=== PATIENT | female | born 1985 | race Caucasian/White ===

== ENCOUNTER 2016-11-10 10:52 | Emergency (ER) | payer OTHER ==
[2016-11-10 10:57] VITALS: BP 117/81; PULSE 88; RESP 18; TEMP 98.2
--- NOTE | 2016-11-10 11:00 | ED ---
General Adult HPI - General Chief complaint: Skin/Abscess/Foreign Body Stated complaint: Rash all over body Time Seen by Provider: 11/10/16 11:00 Source: patient, RN notes reviewed, old records reviewed Mode of arrival: ambulatory Limitations: no limitations - History of Present Illness Initial comments: This is a 31-year-old female here for evaluation of rash. Patient has nonspecific rash over department parts of her body. Spots on her face and upper arms and legs. Patient states symptoms started yesterday, the retches both itchy and painful in nature. She thinks maybe a low-grade fever. She has had issues before with MRSA, has had thorough evaluation for blood poisoning, and full workup for autoimmune disease. Patient states it was determined that she did have skin infection and antibiotics were able to help - Related Data Previous Rx's Medication Instructions Recorded Famotidine [Pepcid] 20 mg PO BID #30 tablet 11/10/16 Hydrocortisone Cream 1 applic TOPICAL BID #1 tube 11/10/16 [Hydrocortisone 2.5% Cream] Sulfamethox-Tmp 800-160Mg [Bactrim 1 tab PO Q12HR #14 tab 11/10/16 DS 800-160 mg] hydrOXYzine HCL [Atarax] 25 mg PO TID PRN #30 tab 11/10/16 predniSONE 50 mg PO DAILY #5 tab 11/10/16 Allergies Allergy/AdvReac Type Severity Reaction Status Date / Time No Known Allergies Allergy Verified 11/10/16 11:40 Review of Systems ROS Statement: Those systems with pertinent positive or pertinent negative responses have been documented in the HPI. ROS Other: All systems not noted in ROS Statement are negative. Past Medical History Additional Past Medical History / Comment(s): cellulitis History of Any Multi-Drug Resistant Organisms: None Reported Additional Past Surgical History / Comment(s): skin graft left hand Past Psychological History: Depression Smoking Status: Current every day smoker Past Alcohol Use History: None Reported Past Drug Use History: None Reported General Exam Limitations: no limitations General appearance: alert, in no apparent distress Head exam: Present: atraumatic, normocephalic, normal inspection Eye exam: Present: normal appearance, PERRL, EOMI. Absent: scleral icterus, conjunctival injection, periorbital swelling ENT exam: Present: normal exam, mucous membranes moist Neck exam: Present: normal inspection. Absent: tenderness, meningismus, lymphadenopathy Respiratory exam: Present: normal lung sounds bilaterally. Absent: respiratory distress, wheezes, rales, rhonchi, stridor Cardiovascular Exam: Present: regular rate, normal rhythm, normal heart sounds. Absent: systolic murmur, diastolic murmur, rubs, gallop, clicks GI/Abdominal exam: Present: soft, normal bowel sounds. Absent: distended, tenderness, guarding, rebound, rigid Extremities exam: Present: normal inspection, full ROM, normal capillary refill. Absent: tenderness, pedal edema, joint swelling, calf tenderness Back exam: Present: normal inspection Neurological exam: Present: alert, oriented X3, CN II-XII intact Psychiatric exam: Present: normal affect, normal mood Skin exam: Present: warm, dry, intact, normal color, other ( does have areas of erythematous rash to extremities, face, all circular nature, no central clearing , they are blanchable). Absent: rash Course Vital Signs 11/10/16 10:54 Temperature 98.2 F Pulse Rate 88 Respiratory 18 Rate Blood Pressure 117/81 O2 Sat by Pulse 99 Oximetry Medical Decision Making - Medical Decision Making 31-year-old female ER with nonspecific dermatitis, patient will be given antibiotic treatment as well as a duration of steroids, symptom management. Patient okay for discharge home Disposition Clinical Impression: Contact dermatitis, MRSA (methicillin resistant Staphylococcus aureus) Disposition: HOME SELF-CARE Condition: Good Instructions: MRSA (Methicillin Resistant Staphylococcus Aureus) (ED) Prescriptions: Famotidine [Pepcid] 20 mg PO BID #30 tablet Hydrocortisone Cream [Hydrocortisone 2.5% Cream] 1 applic TOPICAL BID #1 tube hydrOXYzine HCL [Atarax] 25 mg PO TID PRN #30 tab PRN Reason: Itching predniSONE 50 mg PO DAILY #5 tab Sulfamethox-Tmp 800-160Mg [Bactrim DS 800-160 mg] 1 tab PO Q12HR #14 tab Referrals: Leo Hartman MD [Primary Care Provider] - 1-2 days
[2016-11-10] MEDS ORDERED: SULFAMETHOX-TMP 800-160MG 1 EACH TAB PO STA (11:13)
[2016-11-10] MEDS ORDERED: DEXAMETHASONE SOD PHOSPHATE 10 MG/ML 1 ML VIAL IM STA (11:13)
[2016-11-10] MEDS ORDERED: hydrOXYzine HCL 25 MG TAB PO STA (11:13)
[2016-11-10] MEDS ORDERED: FAMOTIDINE 20 MG TAB PO STA (11:13)
== END 2016-11-10 12:01 | disposition home or self-care (01) ==
LOC: EC 10:52
DX: L25.9 Unspecified contact dermatitis, unspecified cause (principal); B95.62 Methicillin resistant Staphylococcus aureus infection as the cause of diseases classified elsewhere; F17.200 Nicotine dependence, unspecified, uncomplicated
CPT/HCPCS: 99283; 96372; J1100

== ENCOUNTER → 2018-01-19 | Outpatient (CLI) | payer OTHER ==
--- NOTE | 2018-01-19 16:32 | US ---
EXAMINATION TYPE: US venous doppler duplex LE LT DATE OF EXAM: 01/19/2018 4:01 PM COMPARISON: NONE CLINICAL HISTORY: Pain in lower limb LLE M79.605. SIDE PERFORMED: Left TECHNIQUE: The lower extremity deep venous system is examined utilizing real time linear array sonog daniel with graded compression, doppler sonography and color-flow sonography. VESSELS IMAGED: External Iliac Vein (EIV) Common Femoral Vein Deep Femoral Vein Greater Saphenous Vein * Femoral Vein Popliteal Vein Small Saphenous Vein * Proximal Calf Veins (* superficial vessels) Left Leg: Negative for DVT IMPRESSION: No evidence for DVT
== END ==
LOC: RADUSWWP 15:34
PROVIDERS: ATTEND Family Medicine
DX: M79.605 Pain in left leg (principal)

== ENCOUNTER 2018-05-04 16:09 | Inpatient (IN) | payer OTHER ==
[2018-05-04] MEDS ORDERED: DINOPROSTONE 10 MG INSERT.ER VAGINAL ONE (16:19)
[2018-05-04] MEDS ORDERED: ONDANSETRON 4 MG/2 ML VIAL IVP STA (16:21)
[2018-05-04] MEDS ORDERED: LACTATED RINGERS 1,000 ML IV ONE (16:30)
--- NOTE | 2018-05-04 16:30 | P.HPOB ---
History of Present Illness H&P Date: 05/04/18 Chief Complaint: IUP @ 39 4/7 weeks, gestational HTN This is a pleasant 32-year-old 2 para 0010 at 39-4/7 weeks with an estimated due date of 1228 that presents to labor and delivery for induction of labor. Patient has noted nausea and vomiting since around midnight last night denies any sick contacts or changes in her diet. Patient had a blood pressure noted to be 140/90 this is her second episode of elevated blood pressures in therefore diagnosis of gestational hypertension is given to this patient. Patient states she has been yadira irregularly and notes no vaginal bleeding, loss of fluid good movement is noted. NST was done in the office today noted to be reactive. On cervical exam she was 1/50/-3 posterior yet soft. Patient denies visual changes headache or abdominal pain not associated with movement or contractions. Blood type is A+, rubella status immune, RPR nonreactive, hepatitis B surface antigen negative, HIV negative, group beta strep negative on 112, of note she did have a positive urine drug screen for THC on 03/10/2018. Review of Systems Constitutional: Denies chills, Denies fatigue, Denies fever Cardiovascular: Reports leg edema Respiratory: Denies cough, Denies dyspnea Gastrointestinal: Reports nausea, Reports vomiting, Denies constipation, Denies diarrhea Genitourinary: Reports Past Medical History Additional Past Medical History / Comment(s): cellulitis History of Any Multi-Drug Resistant Organisms: None Reported Additional Past Surgical History / Comment(s): skin graft left hand Smoking Status: Never smoker Medications and Allergies Home Medications Medication Instructions Recorded Confirmed Type Famotidine [Pepcid] 20 mg PO BID #30 tablet 11/10/16 04/13/18 Rx Ondansetron [Zofran] 4 mg PO Q12HR PRN 04/13/18 04/13/18 History Pnv No.95/Ferrous Fum/Folic AC 1 each PO DAILY 04/13/18 04/13/18 History [ Multivitamin Tablet] Allergies Allergy/AdvReac Type Severity Reaction Status Date / Time No Known Allergies Allergy Verified 04/13/18 14:31 Exam Osteopathic Statement: *. No significant issues noted on an osteopathic structural exam other than those noted in the History and Physical/Consult. Intake and Output 1205/04/18 05/04/18 06:59 14:59 22:59 Other: Weight 95.708 kg Physical exam is performed on this day, and general this is a well-nourished well-developed female in no acute distress, heart is negative regular rate and rhythm, she displays nonlabored. Breathing with clear lungs being clear to auscultation bilaterally, abdomen is gravid and appropriate for gestational age on cervical exam she is 1/50/-3 soft and posterior. heart tones were noted to be reactive with no contractions noted on the monitor. Assessment and Plan (1) Term Current Visit: Yes Status: Acute Code(s): Z34.80 - ENCOUNTER FOR SUPRVSN OF NORMAL , UNSP TRIMESTER SNOMED Code(s): 89375121 (2) Gestational [-induced] hypertension without significant proteinuria , complicating childbirth Current Visit: Yes Status: Acute Code(s): O13.4 - GESTATNL HTN WITHOUT SIGNIFICANT PROTEIN, COMP CHILDBIRTH SNOMED Code(s): 25507104 Plan: We'll plan to admit patient for Cervidil induction of labor. Given her nausea and vomiting well hydrated with LR, and use Zofran as needed. Plan Pitocin induction in the morning.
[2018-05-04] MEDS ORDERED: ONDANSETRON 4 MG/2 ML VIAL IVP PRN (17:05)
[2018-05-04 17:35] LABS: Basophils % (A) 0 %; Eosinophils # (A) 0.1 k/uL (0-0.7); Eosinophils % (A) 1 %; HCT 36.4 % (34.0-46.0); HGB 11.7 gm/dL (11.4-16.0); Lymphocytes # (A) 1.9 k/uL (1.0-4.8); Lymphocytes % (A) 18 %; MCH 32.4 pg (25.0-35.0); MCHC 32.2 g/dL (31.0-37.0); MCV 100.5 fL (80.0-100.0); Macrocytosis Slight; Mean Platelet Volume 9.4; Monocytes # (A) 0.5 k/uL (0-1.0); Monocytes % (A) 5 %; Neutrophils # (A) 7.3 k/uL (1.3-7.7); Neutrophils % (A) 72 %; Platelet Count 223 k/uL (150-450); RBC 3.62 m/uL (3.80-5.40); RDW 13.4 % (11.5-15.5); WBC 10.2 k/uL (3.8-10.6)
[2018-05-04 17:45] LABS: ALT 20 U/L (9-52); AST 18 U/L (14-36); Blood Urea Nitrogen 7 mg/dL (7-17); LDH 404 U/L (313-618)
[2018-05-04 17:49] VITALS: BMI 34.0
[2018-05-04 18:29] LABS: Appearance,Urine Clear (Clear); Bacteria,Urine Rare /hpf; Bilirubin,Urine Negative (Negative); Blood,Urine Moderate (Negative); Color,Urine Yellow; Glucose,Urine (UA) Negative (Negative); Hyaline Casts,Urine 1 /lpf (0-2); Ketones,Urine 1+ (Negative); Leukocyte Esterase,Urine Negative (Negative); Mucus,Urine Rare /hpf; Nitrite,Urine Negative (Negative); PH, Urine 7.5 (5.0-8.0); Protein,Urine Trace (Negative); RBC,Urine <1 /hpf (0-5); Specific Gravity,Urine 1.013 (1.001-1.035); Squamous Epithelial Cell,Urine <1 /hpf (0-4); Urobilinogen,Urine <2.0 mg/dL (<2.0); WBC,Urine <1 /hpf (0-5)
[2018-05-04 18:33] LABS: Amphetamine Screen,Urine Not Detected (NotDetected); Barbiturate Screen,Urine Not Detected (NotDetected); Benzodiazepines Screen,Urine Not Detected (NotDetected); Cocaine Screen,Urine Not Detected (NotDetected); Methadone Screen, Urine Not Detected (NotDetected); Opiate Screen,Urine Not Detected (NotDetected); Oxycodone Screen, Urine Not Detected (NotDetected); Phencyclidine Screen,Urine Not Detected (NotDetected); Tricyclic Antidepressant,Urine Not Detected (NotDetected); Urn Cannabinoid Scrn Detected (NotDetected)
[2018-05-04] MEDS: LACTATED RINGERS 1,000 ML IV SCH (18:51)
[2018-05-04] MEDS ORDERED: CITRIC ACID-SODIUM CITRATE 15 ML CUP PO PRN (21:09)
[2018-05-04] MEDS: FAMOTIDINE 20 MG/2 ML VIAL IV SCH (21:47)
[2018-05-05] MEDS: LACTATED RINGERS 1,000 ML IV SCH ×2 (01:10→08:38)
[2018-05-05] MEDS: BUTORPHANOL 1 MG/ML 1 ML VIAL IV PRN ×3 (04:13→15:11)
[2018-05-05] MEDS ORDERED: ROPIVACAINE 100 MG, fentaNYL (PF) 200 MCG in SODIUM CHLORIDE 0.9% 76 ML EPIDURAL ONE (09:20)
[2018-05-05] MEDS: FAMOTIDINE 20 MG/2 ML VIAL IV SCH (09:58)
[2018-05-05] MEDS ORDERED: OXYTOCIN 10 UNIT/ML 1 ML VIAL IM ONE (15:18)
[2018-05-05] MEDS ORDERED: CARBOPROST TROMETHAMINE 250 MCG/ML 1 ML AMP IM ONE (15:24)
[2018-05-05] MEDS ORDERED: WITCH HAZEL 1 EACH MED..PAD TOPICAL PRN (15:24)
[2018-05-05] MEDS ORDERED: diphenhydrAMINE 25 MG CAP PO PRN (15:24)
[2018-05-05] MEDS ORDERED: diphenhydrAMINE 50 MG/ML 1 ML VIAL IVP PRN ×2 (15:24)
[2018-05-05] MEDS ORDERED: HYDROCORTISONE 2.5% RECTAL CREAM 30 GM TUBE RECTAL PRN (15:24)
[2018-05-05] MEDS ORDERED: ZOLPIDEM 5 MG TAB PO PRN (15:24)
[2018-05-05] MEDS ORDERED: diphenhydrAMINE 50 MG CAP PO PRN (15:24)
[2018-05-05] MEDS ORDERED: SIMETHICONE 80 MG CHEWABLE PO PRN (15:24)
[2018-05-05] MEDS ORDERED: LANOLIN CREAM 5 GM TUBE TOPICAL PRN (15:24)
[2018-05-05] MEDS ORDERED: BENZOCAINE/MENTHOL SPRAY 1 GM/SPRAY AEROSOL TOPICAL PRN (15:24)
[2018-05-05] MEDS ORDERED: OXYTOCIN 20 UNITS/1000 ML NS 1,000 ML IV SCH (15:30)
--- NOTE | 2018-05-05 15:31 | P.PROBDLV ---
Vaginal Delivery Note - . Vaginal Delivery Note: This is a 32-year-old 2 para 0010 at 39-4/7 weeks that presented to labor and delivery yesterday for induction of labor secondary to nausea vomiting and elevated blood pressure. Patient was admitted to labor and delivery and Cervidil was placed. Patient progressed through the night eventually becoming uncomfortable and in the morning Cervidil was placed and she was noted to be 1-2 cm/80/-2. Patient was started on Pitocin induction of labor. Given her discomfort epidural was placed at that time. Amniotomy was performed and clear fluid was obtained. Patient progressed throughout labor eventually becoming complete began pushing to at that time patient refused to push vacuum was placed, placement was confirmed and noted to be in the green pressure zone. with 1 pull a viable male was delivered at 1505 , weight of 6 lbs. 12 oz. with Apgars of 99 at one and 5 minutes respectively. Afterwards on inspection the patient's vaginal vault a second-degree midline laceration was noted. The placenta was then doubly clamped and delivered spontaneously intact. The second-degree midline laceration was repaired in usual fashion with 3-0 repeat. Uterus noted to be firm and below the umbilicus. A straight blood loss 300 mL. A rectal exam was performed and normal in nature. All counts were noted to be correct 2 patient and infant tolerated delivery well.
[2018-05-05] MEDS: IBUPROFEN 600 MG TAB PO PRN (15:56)
[2018-05-05] MEDS ORDERED: INFLUENZA VACCINE (6 MOS+) 60 MCG/0.5 ML SYRINGE IM ONE (17:35)
[2018-05-05] MEDS ORDERED: PNEUMOCOCCAL VACC-PNEUMOVAX 23 25 MCG/0.5 ML VIAL IM ONE (17:36)
[2018-05-05] MEDS ORDERED: SENNOSIDES-DOCUSATE SODIUM 1 EACH TAB PO SCH (20:00)
[2018-05-05 20:27] VITALS: RESP 16
[2018-05-05] MEDS: ACETAMINOPHEN TAB 325 MG TAB PO PRN (21:32)
[2018-05-06] MEDS: IBUPROFEN 600 MG TAB PO PRN ×3 (04:21→17:22)
[2018-05-06 07:28] LABS: Basophils % (A) 0 %; Eosinophils # (A) 0.2 k/uL (0-0.7); Eosinophils % (A) 2 %; HCT 30.4 % (34.0-46.0); Lymphocytes # (A) 2.4 k/uL (1.0-4.8); Lymphocytes % (A) 17 %; MCV 99.9 fL (80.0-100.0); Mean Platelet Volume 9.3; Monocytes # (A) 0.8 k/uL (0-1.0); Monocytes % (A) 5 %; Neutrophils # (A) 10.4 k/uL (1.3-7.7); Neutrophils % (A) 73 %; Platelet Count 206 k/uL (150-450); RBC 3.04 m/uL (3.80-5.40); RDW 13.4 % (11.5-15.5); WBC 14.2 k/uL (3.8-10.6)
--- NOTE | 2018-05-06 08:24 | P.PNOBGVD ---
Subjective - Subjective Principal diagnosis: PPD 1 Interval history: Patient did well overnight. She is ambulating and voiding without difficulty. She states her pain is controlled with oral medication. She is stating her lochia is moderate. She is having some discomfort in her perineum where the laceration was repaired otherwise doing well. Blood pressures have been improved at 130s over 90s. She denies headache abdominal pain or visual changes this morning. Patient reports: Reports appetite normal, Reports voiding normally, Reports pain well controlled, Reports ambulating normally : doing well Objective - Latest Vital Signs Latest vital signs: Vital Signs Temp Pulse Resp BP Pulse Ox 05/06/18 04:00 80 16 140/93 05/05/18 23:41 71 16 152/94 05/05/18 20:00 97.5 F L 80 16 135/99 05/05/18 17:40 97.6 F 82 18 141/79 97 05/05/18 17:25 97 130/73 05/05/18 16:55 97.4 F L 80 18 140/74 05/05/18 16:25 88 149/70 05/05/18 16:10 97.5 F L 100 18 139/67 05/05/18 15:55 127 H 132/70 05/05/18 15:40 97.6 F 114 H 18 137/76 05/05/18 15:25 97.9 F 115 H 18 149/86 Intake and Output 05/05/18 05/06/18 05/06/18 22:59 06:59 14:59 Other: # Voids 1 - Exam Extremities: Present: edema Abdomen: Present: normal appearance, soft Uterus: Present: normal, firm - Labs Labs: Abnormal Lab Results - Last 24 Hours (Table) 05/06/18 Range/Units 06:24 WBC 14.2 H (3.8-10.6) k/uL RBC 3.04 L (3.80-5.40) m/uL Hgb 10.0 L D (11.4-16.0) gm/dL Hct 30.4 L (34.0-46.0) % Neutrophils # 10.4 H (1.3-7.7) k/uL Assessment and Plan (1) Term Current Visit: Yes Status: Acute Code(s): Z34.80 - ENCOUNTER FOR SUPRVSN OF NORMAL , UNSP TRIMESTER SNOMED Code(s): 84762967 (2) Gestational [-induced] hypertension without significant proteinuria , complicating childbirth Current Visit: Yes Status: Acute Code(s): O13.4 - GESTATNL HTN WITHOUT SIGNIFICANT PROTEIN, COMP CHILDBIRTH SNOMED Code(s): 46721911 (3) Status post normal vaginal delivery Current Visit: Yes Status: Acute Code(s): IOD0422 - SNOMED Code(s): 724060774 (4) Perineal laceration Current Visit: Yes Status: Acute Code(s): S31.41XA - LACERATION W/O FOREIGN BODY OF VAGINA AND VULVA, INIT ENCNTR SNOMED Code(s): 825409142 Plan: We'll continue routine care and anticipate discharge home tomorrow.
[2018-05-06] MEDS: ACETAMINOPHEN TAB 325 MG TAB PO PRN ×2 (09:11→14:31)
[2018-05-06] MEDS: FAMOTIDINE 20 MG/2 ML VIAL IV SCH (09:13)
[2018-05-06] MEDS ORDERED: PANTOPRAZOLE 40 MG TABLET PO SCH (10:45)
[2018-05-07] MEDS: IBUPROFEN 600 MG TAB PO PRN (08:25)
[2018-05-07 08:29] VITALS: BP 142/89; PULSE 80; TEMP 98.1
--- NOTE | 2018-05-07 09:17 | P.DS ---
Providers Date of admission: 05/04/18 16:09 Expected date of discharge: 05/07/18 Attending physician: Mikayla Badillo Primary care physician: Stated None Hospital Course: This is a 32-year-old white female 2 para 0010 EDC 04/28/1916 at 39-4/7 weeks' gestation. Patient presented for induction for low-grade blood pressure elevation. is remarkable for rubella status immune, group B strep cultures negative, blood type A+. Please see dictated history and physical for details. Patient was induced with Cervidil, and then oxytocin. She went on to deliver vaginally a liveborn male with scores of 9 and 9 at one and 5 minutes respectively. A vacuum extractor was used in the second stage of labor. weighed 6 lbs. 12 oz. or 3060 g. Please see dictated delivery note for details. A small second-degree perineal laceration was identified and repaired. This morning the patient feels well. She did have a low-grade headache that resolved with Tylenol. She has 2+ peripheral edema, 2+ reflexes on the lower extremities. Chest is clear in all nieves. [place] is doing well, circumcision has been performed. Patient denies visual changes or right upper quadrant pain, she has no headache at this time. There is minimal lochia rubra , perineal body is clean and dry, fundus is firm and in the midline, symmetric and 18 week size. Patient is judged to be in good condition for discharge home. I've instructed her to obtain a blood pressure cuff and take her blood pressures daily, and to write them down. She is to call with any systolic pressure greater than 150, or diastolic pressure greater than 100. She is to call with any fevers shakes or chills, foul smelling or copious lochia, with the passage of large blood clots, with any headache not alleviated by Tylenol, with any right upper quadrant pain or visual changes. I've asked her to call with any issues or difficulties she should experience. [place] will follow-up with trash collector supervisor as recommended. Advil or Motrin as needed for pain. Contraceptive options have been briefly discussed, she will discuss this with her primary command and control systems integrator in the office. Patient Condition at Discharge: Good Plan - Discharge Summary Discharge Rx Participant: No New Discharge Prescriptions: No Action Famotidine [Pepcid] 20 mg PO BID #30 tablet Ondansetron [Zofran] 4 mg PO Q12HR PRN PRN Reason: Nausea Pnv No.95/Ferrous Fum/Folic AC [ Multivitamin Tablet] 1 each PO DAILY Discharge Medication List Famotidine [Pepcid] 20 mg PO BID #30 tablet 11/10/16 [Rx] Ondansetron [Zofran] 4 mg PO Q12HR PRN 04/13/18 [History] Pnv No.95/Ferrous Fum/Folic AC [ Multivitamin Tablet] 1 each PO DAILY [History] Follow up Appointment(s)/Referral(s): Mikayla Badillo DO [Doctor of Osteopathic Medicine] - 2 Weeks Discharge Disposition: HOME SELF-CARE
== END 2018-05-07 11:51 | disposition home or self-care (01) | DRG 807 ==
LOC: 4FBP 16:09
PROVIDERS: ADMIT Obstetrics & Gynecology Obstetrics; ATTEND Obstetrics & Gynecology Obstetrics
PROC: 10E0XZZ Delivery of Products of Conception, External Approach (ICD-10-PCS; principal; 2018-05-05)
PROC: 0KQM0ZZ Repair Perineum Muscle, Open Approach (ICD-10-PCS; 2018-05-05)
PROC: 10907ZC Drainage of Amniotic Fluid, Therapeutic from Products of Conception, Via Natural or Artificial Opening (ICD-10-PCS; 2018-05-05)
PROC: 3E033VJ Introduction of Other Hormone into Peripheral Vein, Percutaneous Approach (ICD-10-PCS; 2018-05-05)
PROC: 3E0P7VZ Introduction of Hormone into Female Reproductive, Via Natural or Artificial Opening (ICD-10-PCS; 2018-05-05)
PROC: 00HU33Z Insertion of Infusion Device into Spinal Canal, Percutaneous Approach (ICD-10-PCS; 2018-05-05)
PROC: 3E0R3BZ Introduction of Anesthetic Agent into Spinal Canal, Percutaneous Approach (ICD-10-PCS; 2018-05-05)
DX: O13.4 Gestational [pregnancy-induced] hypertension without significant proteinuria, complicating childbirth (principal); Z37.0 Single live birth; O70.1 Second degree perineal laceration during delivery; Z3A.39 39 weeks gestation of pregnancy
CPT/HCPCS: 80306; 81001; 82565; 83615; 84450; 84460; 84520; 84550; 85025; 90686

== ENCOUNTER 2020-03-18 11:03 | Emergency (ER) | payer OTHER ==
[2020-03-18 11:29] VITALS: RESP 18
[2020-03-18] MEDS ORDERED: KETOROLAC 15 MG/ML 1 ML VIAL IVP STA (12:17)
[2020-03-18] MEDS ORDERED: SODIUM CHLORIDE 0.9% 1,000 ML IV STA (12:17)
[2020-03-18] MEDS ORDERED: ONDANSETRON 4 MG/2 ML VIAL IVP STA (12:18)
[2020-03-18 13:06] LABS: Basophils # (A) 0.1 k/uL (0-0.2); Basophils % (A) 1 %; Eosinophils # (A) 0.2 k/uL (0-0.7); Eosinophils % (A) 2 %; HCT 41.5 % (34.0-46.0); HGB 14.5 gm/dL (11.4-16.0); Lymphocytes # (A) 1.6 k/uL (1.0-4.8); Lymphocytes % (A) 17 %; MCH 34.5 pg (25.0-35.0); MCHC 34.9 g/dL (31.0-37.0); MCV 98.9 fL (80.0-100.0); Mean Platelet Volume 8.9; Monocytes # (A) 0.4 k/uL (0-1.0); Monocytes % (A) 4 %; Neutrophils # (A) 6.6 k/uL (1.3-7.7); Neutrophils % (A) 71 %; Platelet Count 285 k/uL (150-450); RDW 11.6 % (11.5-15.5); WBC 9.3 k/uL (3.8-10.6)
[2020-03-18 13:08] LABS: Appearance,Urine Clear (Clear); Bilirubin,Urine Negative (Negative); Blood,Urine Trace (Negative); Color,Urine Yellow; Glucose,Urine (UA) Negative (Negative); Ketones,Urine Negative (Negative); Leukocyte Esterase,Urine Negative (Negative); Mucus,Urine Rare /hpf; Nitrite,Urine Negative (Negative); Protein,Urine Negative (Negative); RBC,Urine 2 /hpf (0-5); Specific Gravity,Urine 1.018 (1.001-1.035); Squamous Epithelial Cell,Urine 2 /hpf (0-4); Urobilinogen,Urine <2.0 mg/dL (<2.0); WBC,Urine 4 /hpf (0-5)
[2020-03-18 13:18] LABS: ALT 12 U/L (4-34); AST 23 U/L (14-36); African American GFR (CKD) >90 (>60 ml/min/1.73 sqM); Albumin 4.1 g/dL (3.5-5.0); Alkaline Phosphatase 36 U/L (38-126); Amylase 38 U/L (30-110); Anion Gap 6 mmol/L; Blood Urea Nitrogen 11 mg/dL (7-17); Carbon Dioxide 25 mmol/L (22-30); Chloride 106 mmol/L (98-107); Glucose 98 mg/dL (74-99); Lipase 142 U/L (23-300); Non-African American GFR(CKD) >90 (>60 ml/min/1.73 sqM); Sodium 137 mmol/L (137-145); Total Bilirubin 0.5 mg/dL (0.2-1.3)
[2020-03-18 13:21] LABS: INR 0.9 (<1.2); Partial Thromboplastin Time 26.2 sec (22.0-30.0); Prothrombin Time 9.7 sec (9.0-12.0)
--- NOTE | 2020-03-18 13:25 | ED ---
Abdominal Pain HPI - General Source: patient Mode of arrival: ambulatory Limitations: no limitations <Carmel Rm - Last Filed: 03/18/20 14:18> <Kitty Rodriguez - Last Filed: 03/18/20 16:44> - General Chief Complaint: Abdominal Pain Stated Complaint: Abd pain Time Seen by Provider: 03/18/20 12:00 - History of Present Illness Initial Comments: Patient is a 34-year-old female presenting to emergency Department with complaints of lower abdominal pain, nausea and vomiting for the last 2 days. She states that she is at the start of her period and sometimes gets some cramping but has never had intense pain like this. She states the pain is on the lower abdomen, both sides with some radiation the right upper quadrant as well. She admits to few days of nausea and a few episodes of vomiting. She den ies any fever, chills. She states she is very uncomfortable, try to take some ibuprofen without improvement. She denies any chest pain, shortness of breath. She denies any urinary complaints. She states she does not believe she is . She denies history of abdominal surgeries. She has no further complaints at this time. Upon arrival to the ER her vital signs are stable. (Carmel Naranjo) - Related Data Home Medications Medication Instructions Recorded Confirmed No Known Home Medications 03/18/20 03/18/20 Allergies Allergy/AdvReac Type Severity Reaction Status Date / Time No Known Allergies Allergy Verified 03/18/20 14:27 Review of Systems ROS Other: All systems not noted in ROS Statement are negative. <Carmel Rm - Last Filed: 03/18/20 14:18> ROS Other: All systems not noted in ROS Statement are negative. <Kitty Rodriguez - Last Filed: 03/18/20 16:44> ROS Statement: Those systems with pertinent positive or pertinent negative responses have been documented in the HPI. Past Medical History Additional Past Medical History / Comment(s): cellulitis History of Any Multi-Drug Resistant Organisms: None Reported Additional Past Surgical History / Comment(s): skin graft left hand Past Anesthesia/Blood Transfusion Reactions: No Reported Reaction Past Psychological History: Anxiety, Bipolar, Depression, Panic Disorder Smoking Status: Current every day smoker Past Alcohol Use History: None Reported Past Drug Use History: None Reported - Past Family History Father Family Medical History: No Reported History <Carmel Rm Kiara - Last Filed: 03/18/20 14:18> General Exam Limitations: no limitations <Carmel Rm - Last Filed: 03/18/20 14:18> - General Exam Comments Initial Comments: GENERAL: Patient is well-developed and well-nourished. Patient is nontoxic and in mild distress. HEAD: Atraumatic, normocephalic. EYES: Pupils equal round and reactive to light, extraocular movements intact, sclera anicteric, conjunctiva are normal. Eyelids were unremarkable. ENT: TMs normal, nares patent, oropharynx clear without exudates. Moist mucous membranes. NECK: Normal range of motion, supple without lymphadenopathy or JVD. LUNGS: Unlabored respirations. Breath sounds clear to auscultation bilaterally and equal. No wheezes rales or rhonchi. HEART: Regular rate and rhythm without murmurs, rubs or gallops. ABDOMEN: Tender to palpation bilateral lower quadrant, right upper quadrant, guarding. Soft, normoactive bowel sounds. No rebound. No masses appreciated. : Deferred MUSCULOSKELETAL: Normal extremities with adequate strength and normal range of motion, no pitting or edema. No clubbing or cyanosis. NEUROLOGICAL: Patient is alert and oriented x 3. Motor and sensory are also intact. Cranial nerves II through XII grossly intact. Symmetrical smile. Normal speech, normal gait. PSYCH: Normal mood, normal affect. SKIN: Warm, Dry, normal turgor, no rashes or lesions noted. (SujeyKarenCarmel L) Course Vital Signs 03/18/20 11:26 Temperature 97.5 F L Pulse Rate 61 Respiratory 18 Rate Blood Pressure 127/86 O2 Sat by Pulse 99 Oximetry Medical Decision Making - Lab Data Result diagrams: 03/18/20 12:47 03/18/20 12:47 <SujeyCarmel L - Last Filed: 03/18/20 14:18> - Lab Data Result diagrams: 03/18/20 12:47 03/18/20 12:47 <Kitty Rodriguez - Last Filed: 03/18/20 16:44> - Medical Decision Making Patient is a 34-year-old female here with bilateral lower quadrant right upper quadrant abdominal pain, nausea and vomiting for 2 days. Her vitals are stable. Labs show no acute process, normal white count, normal lactic acid, lipase is normal, urine shows no evidence of infection, negative hCG. CT of the abdomen shows no acute process, no signs of appendicitis. Patient did receive fluids, pain control, she is feeling improvement in her symptoms. Patient did request [facility] test secondary to coworkers testing positive and she had now mentioned she does have a mild cough. We did swab her for Covid. (Carmel Rm) - Lab Data Lab Results 03/18/20 03/18/20 03/18/20 Range/Units 12:47 12:47 12:47 WBC 9.3 (3.8-10.6) k/uL RBC 4.20 (3.80-5.40) m/uL Hgb 14.5 (11.4-16.0) gm/dL Hct 41.5 (34.0-46.0) % MCV 98.9 (80.0-100.0) fL MCH 34.5 (25.0-35.0) pg MCHC 34.9 (31.0-37.0) g/dL RDW 11.6 (11.5-15.5) % Plt Count 285 (150-450) k/uL Neutrophils % 71 % Lymphocytes % 17 % Monocytes % 4 % Eosinophils % 2 % Basophils % 1 % Neutrophils # 6.6 (1.3-7.7) k/uL Lymphocytes # 1.6 (1.0-4.8) k/uL Monocytes # 0.4 (0-1.0) k/uL Eosinophils # 0.2 (0-0.7) k/uL Basophils # 0.1 (0-0.2) k/uL PT 9.7 (9.0-12.0) sec INR 0.9 (<1.2) APTT 26.2 (22.0-30.0) sec Sodium (137-145) mmol/L Potassium (3.5-5.1) mmol/L Chloride (98-107) mmol/L Carbon Dioxide (22-30) mmol/L Anion Gap mmol/L BUN (7-17) mg/dL Creatinine (0.52-1.04) mg/dL Est GFR (CKD-EPI)AfAm (>60 ml/min/1.73 sqM) Est GFR (CKD-EPI)NonAf (>60 ml/min/1.73 sqM) Glucose (74-99) mg/dL Plasma Lactic Acid Nagi (0.7-2.0) mmol/L Calcium (8.4-10.2) mg/dL Total Bilirubin (0.2-1.3) mg/dL AST (14-36) U/L ALT (4-34) U/L Alkaline Phosphatase (38-126) U/L Total Protein (6.3-8.2) g/dL Albumin (3.5-5.0) g/dL Amylase (30-110) U/L Lipase (23-300) U/L Urine Color Yellow Urine Appearance Clear (Clear) Urine pH 8.0 (5.0-8.0) Ur Specific [place] 1.018 (1.001-1.035) Urine Protein Negative (Negative) Urine Glucose (UA) Negative (Negative) Urine Ketones Negative (Negative) Urine Blood Trace H (Negative) Urine Nitrite Negative (Negative) Urine Bilirubin Negative (Negative) Urine Urobilinogen <2.0 (<2.0) mg/dL Ur Leukocyte Esterase Negative (Negative) Urine RBC 2 (0-5) /hpf Urine WBC 4 (0-5) /hpf Ur Squamous Epith Cells 2 (0-4) /hpf Urine Mucus Rare H (None) /hpf Urine HCG, Qual (Not Detectd) Coronavirus (PCR) (Not Detectd) 03/18/20 03/18/20 03/18/20 Range/Units 12:47 12:47 12:47 WBC (3.8-10.6) k/uL RBC (3.80-5.40) m/uL Hgb (11.4-16.0) gm/dL Hct (34.0-46.0) % MCV (80.0-100.0) fL MCH (25.0-35.0) pg MCHC (31.0-37.0) g/dL RDW (11.5-15.5) % Plt Count (150-450) k/uL Neutrophils % % Lymphocytes % % Monocytes % % Eosinophils % % Basophils % % Neutrophils # (1.3-7.7) k/uL Lymphocytes # (1.0-4.8) k/uL Monocytes # (0-1.0) k/uL Eosinophils # (0-0.7) k/uL Basophils # (0-0.2) k/uL PT (9.0-12.0) sec INR (<1.2) APTT (22.0-30.0) sec Sodium 137 (137-145) mmol/L Potassium 4.6 (3.5-5.1) mmol/L Chloride 106 (98-107) mmol/L Carbon Dioxide 25 (22-30) mmol/L Anion Gap 6 mmol/L BUN 11 (7-17) mg/dL Creatinine 0.68 (0.52-1.04) mg/dL Est GFR (CKD-EPI)AfAm >90 (>60 ml/min/1.73 sqM) Est GFR (CKD-EPI)NonAf >90 (>60 ml/min/1.73 sqM) Glucose 98 (74-99) mg/dL Plasma Lactic Acid Nagi 1.7 (0.7-2.0) mmol/L Calcium 9.0 (8.4-10.2) mg/dL Total Bilirubin 0.5 (0.2-1.3) mg/dL AST 23 (14-36) U/L ALT 12 (4-34) U/L Alkaline Phosphatase 36 L (38-126) U/L Total Protein 7.0 (6.3-8.2) g/dL Albumin 4.1 (3.5-5.0) g/dL Amylase 38 (30-110) U/L Lipase 142 (23-300) U/L Urine Color Urine Appearance (Clear) Urine pH (5.0-8.0) Ur Specific [place] (1.001-1.035) Urine Protein (Negative) Urine Glucose (UA) (Negative) Urine Ketones (Negative) Urine Blood (Negative) Urine Nitrite (Negative) Urine Bilirubin (Negative) Urine Urobilinogen (<2.0) mg/dL Ur Leukocyte Esterase (Negative) Urine RBC (0-5) /hpf Urine WBC (0-5) /hpf Ur Squamous Epith Cells (0-4) /hpf Urine Mucus (None) /hpf Urine HCG, Qual Not Detected (Not Detectd) Coronavirus (PCR) (Not Detectd) 03/18/20 Range/Units 14:18 WBC (3.8-10.6) k/uL RBC (3.80-5.40) m/uL Hgb (11.4-16.0) gm/dL Hct (34.0-46.0) % MCV (80.0-100.0) fL MCH (25.0-35.0) pg MCHC (31.0-37.0) g/dL RDW (11.5-15.5) % Plt Count (150-450) k/uL Neutrophils % % Lymphocytes % % Monocytes % % Eosinophils % % Basophils % % Neutrophils # (1.3-7.7) k/uL Lymphocytes # (1.0-4.8) k/uL Monocytes # (0-1.0) k/uL Eosinophils # (0-0.7) k/uL Basophils # (0-0.2) k/uL PT (9.0-12.0) sec INR (<1.2) APTT (22.0-30.0) sec Sodium (137-145) mmol/L Potassium (3.5-5.1) mmol/L Chloride (98-107) mmol/L Carbon Dioxide (22-30) mmol/L Anion Gap mmol/L BUN (7-17) mg/dL Creatinine (0.52-1.04) mg/dL Est GFR (CKD-EPI)AfAm (>60 ml/min/1.73 sqM) Est GFR (CKD-EPI)NonAf (>60 ml/min/1.73 sqM) Glucose (74-99) mg/dL Plasma Lactic Acid Nagi (0.7-2.0) mmol/L Calcium (8.4-10.2) mg/dL Total Bilirubin (0.2-1.3) mg/dL AST (14-36) U/L ALT (4-34) U/L Alkaline Phosphatase (38-126) U/L Total Protein (6.3-8.2) g/dL Albumin (3.5-5.0) g/dL Amylase (30-110) U/L Lipase (23-300) U/L Urine Color Urine Appearance (Clear) Urine pH (5.0-8.0) Ur Specific [place] (1.001-1.035) Urine Protein (Negative) Urine Glucose (UA) (Negative) Urine Ketones (Negative) Urine Blood (Negative) Urine Nitrite (Negative) Urine Bilirubin (Negative) Urine Urobilinogen (<2.0) mg/dL Ur Leukocyte Esterase (Negative) Urine RBC (0-5) /hpf Urine WBC (0-5) /hpf Ur Squamous Epith Cells (0-4) /hpf Urine Mucus (None) /hpf Urine HCG, Qual (Not Detectd) Coronavirus (PCR) Not Detected (Not Detectd) Disposition <Carmel Rm - Last Filed: 03/18/20 14:18> Is patient prescribed a controlled substance at d/c from ED?: No Time of Disposition: 16:44 <Kitty Rodriguez - Last Filed: 03/18/20 16:44> Clinical Impression: Abdominal pain Disposition: HOME SELF-CARE Condition: Stable Instructions (If sedation given, give patient instructions): Abdominal Pain (ED) Referrals: None,Stated [Primary Care Provider] - 1-2 days
--- NOTE | 2020-03-18 13:54 | CT ---
EXAMINATION TYPE: CT abdomen pelvis w con DATE OF EXAM: 03/18/2020 HISTORY: Abd pain. Nausea vomiting and diarrhea. CT DLP: 948.4mGycm Automated Exposure Control for Dose Reduction was Utilized. CONTRAST: CT scan of the abdomen and pelvis is performed without oral but with IV Contrast, patient injected wi th 100 mL of Isovue 300. COMPARISON: None. FINDINGS: LUNG BASES: No significant abnormality is appreciated. LIVER/GB: No significant abnormality is appreciated. PANCREAS: No significant abnormality is seen. SPLEEN: Small splenule posterior to spleen axial image 19. ADRENALS: No significant abnormality is seen. KIDNEYS: Symmetric cortical medullary uptake and excretion without solid or cystic renal mass or hydr onephrosis seen bilaterally. BOWEL: No suspicious small or large bowel dilatation. Low-lying cecum into the right pelvis. Slightly suboptimal evaluation of bowel without enteric contrast and patient having little intra-abdominal fa t. UTERUS/ADNEXA: Slightly retroverted uterus. LYMPH NODES: No greater than 1cm abdominal or pelvic lymph nodes are appreciated. OSSEOUS STRUCTURES: No significant abnormality is seen. OTHER: No significant additional abnormality is seen. IMPRESSION: No bowel obstruction. No significant acute finding is seen to account for patient's clini kraig symptoms.
[2020-03-18] MEDS ORDERED: MORPHINE SULFATE 4 MG/ML SYRINGE IVP STA (14:03)
[2020-03-18 14:05] LABS: Potassium 4.6 mmol/L (3.5-5.1)
[2020-03-18] MEDS ORDERED: HYDROcodone/APAP 10-325MG 1 EACH TAB PO ONE (15:56)
[2020-03-18] MEDS ORDERED: ACET/COD 300 MG/30 MG STARTER PACK 6 TAB BTL PO STA (16:44)
[2020-03-18 17:05] VITALS: BP 105/70; PULSE 52; TEMP 97.1
== END 2020-03-18 17:07 | disposition home or self-care (01) ==
LOC: EC 11:03
DX: R10.31 Right lower quadrant pain (principal); R10.32 Left lower quadrant pain; R10.11 Right upper quadrant pain; R11.2 Nausea with vomiting, unspecified; R05 Cough; F17.200 Nicotine dependence, unspecified, uncomplicated; Z20.828 Contact with and (suspected) exposure to other viral communicable diseases
CPT/HCPCS: 36415; 80053; 82150; 83605; 83690; 85025; 85610; 85730; 81001; 81025; 87635; 74177; 99284; 96374; 96375 ×2; 96361 ×4; J2270; J2405; J1885; Q9967

== ENCOUNTER → 2021-01-20 | Outpatient (CLI) | payer OTHER | END | disposition home or self-care (01) | LOC: LABWHC1 16:07 | PROVIDERS: ATTEND Family Medicine | DX: Z20.822 Contact with and (suspected) exposure to COVID-19 (principal) | CPT/HCPCS: U0003; C9803; U0005 ==